=== PATIENT | female | born 1970 ===

== ENCOUNTER 2022-01-17 09:00 | Inpatient (IN) | payer OTHER ==
[~2022-01-17] VITALS: Ht 165.1 cm; Wt 90.7 kg
[2022-01-22] MEDS ORDERED: VITAMIN D31250 MCG (14:17)
[2022-01-26] MEDS ORDERED: PERCOCET 5-3251 EACH PO (17:13)
[2022-01-26] MEDS ORDERED: INTEGRA PLUS C1 EACH PO (17:13)
[2022-01-26] MEDS ORDERED: PROTONIX40 MG PO (17:14)
== END 2022-01-26 19:48 | disposition home or self-care (01) | DRG 331 ==
LOC: SURH 01-22 09:00 → O/R 01-22 10:19 → SURH 01-22 14:55
PROVIDERS: ADMIT Surgery; ATTEND Surgery
PROC: 07BB4ZZ Excision of Mesenteric Lymphatic, Percutaneous Endoscopic Approach (ICD-10-PCS; 2022-01-22)
PROC: 0DTF4ZZ Resection of Right Large Intestine, Percutaneous Endoscopic Approach (ICD-10-PCS; principal; 2022-01-22 09:30)
DX: C7A.012 Malignant carcinoid tumor of the ileum (principal); E31.21 Multiple endocrine neoplasia [MEN] type I; I11.9 Hypertensive heart disease without heart failure; D12.0 Benign neoplasm of cecum; Z20.822 Contact with and (suspected) exposure to COVID-19